=== PATIENT | female | born 1995 | race Caucasian/White ===

== ENCOUNTER 2019-01-07 07:39 | Emergency (ER) | payer BC, MEDICAID, OTHER ==
[~2019-01-07] VITALS: Ht 175.3 cm; Wt 88.6 kg
[~2019-01-07 07:39] MED LIST: ALBUTEROL; PROV90AE; TYLENOL #3
[2019-01-07] MEDS ORDERED: AMIT25TA PO (07:43)
[2019-01-07] MEDS ORDERED: ALLE180T33 PO (07:43)
[2019-01-07] MEDS ORDERED: CEFD1CAP8 PO (07:43)
[2019-01-07] MEDS ORDERED: METOCLOPRAMIDE INJ 10MG/2ML VIAL (J2765) IV ONE (09:00)
[2019-01-07] MEDS ORDERED: KETOROLAC 30 MG/ML VIAL (J1885) IV ONE (09:00)
[2019-01-07] MEDS ORDERED: NS 1,000 ML IV ONE (09:00)
[2019-01-07] MEDS ORDERED: ACETAMINOPHEN TAB 650MG DOSE (2X325MG) PO ONE (09:00)
[2019-01-07] MEDS ORDERED: ONDA4TAB6 PO (09:49)
[2019-01-07] MEDS ORDERED: BENZ200C70 PO (09:49)
[2019-01-07] MEDS ORDERED: IBUP-1022 PO (09:49)
[2019-01-07 09:58] VITALS: BP 110/58
== END 2019-01-07 09:58 | disposition home or self-care (01) ==
LOC: M ED 07:39
DX: J06.9 Acute upper respiratory infection, unspecified (principal); G43.909 Migraine, unspecified, not intractable, without status migrainosus; Z79.899 Other long term (current) drug therapy
CPT/HCPCS: 96374; 96375; 99284; J1885; J2765

== ENCOUNTER → 2023-02-07 | Outpatient (REF) | payer OTHER ==
[~2023-02-07] MED LIST changes: +ALLE180T33 PO; +AMIT25TA17 PO; +BENZ200C70 PO; +CEFD300C41 PO; +IBUP-1022 PO; +ONDA4TAB6 PO
[2023-02-08 12:38] LABS: GC DNA AMPLIFICATION NEGATIVE (NEGATIVE)
== END ==
LOC: M LAB REF 09:40
PROVIDERS: ATTEND Physician Assistant
DX: R30.0 Dysuria (principal); Z20.2 Contact with and (suspected) exposure to infections with a predominantly sexual mode of transmission

== ENCOUNTER → 2023-02-08 | Outpatient (CLI) | payer OTHER ==
[2023-02-08 10:59] LABS: HIV 1&2 SCREEN CENTAUR NEGATIVE (NEGATIVE)
[2023-02-09 07:12] LABS: HSV TYPE II IgG SPECIFIC <0.91 index (0.00-0.90)
== END ==
LOC: M WUC 08:20
PROVIDERS: ATTEND Physician Assistant
DX: R30.0 Dysuria (principal); Z20.2 Contact with and (suspected) exposure to infections with a predominantly sexual mode of transmission

== ENCOUNTER → 2023-06-21 | Outpatient (CLI) | payer OTHER ==
[~2023-06-21] MED LIST changes: -AMIT25TA17 PO; +AMIT25TA19 PO
== END ==
LOC: M PLAIMG 10:22
PROVIDERS: ATTEND Otolaryngology
DX: J33.0 Polyp of nasal cavity (principal)